=== PATIENT | male | born 1985 | race Caucasian/White ===

== ENCOUNTER 2018-05-08 23:46 | Emergency (ER) | payer OTHER ==
[~2018-05-08] VITALS: Ht 167.6 cm; Wt 72.7 kg
[2018-05-08 23:46] VITALS: BP 125/68
== END 2018-05-09 00:57 | disposition home or self-care (01) ==
LOC: M ED 23:46
DX: H92.02 Otalgia, left ear (principal); T16.2XXA Foreign body in left ear, initial encounter; Y92.9 Unspecified place or not applicable; Y93.9 Activity, unspecified